=== PATIENT | male | born 1990 | race Two or more races ===

== ENCOUNTER 2020-02-27 11:39 | Emergency (ER) | payer OTHER ==
[~2020-02-27] VITALS: Ht 172.7 cm; Wt 103.7 kg
[2020-02-27] MEDS ORDERED: BUPIVAcaine/PF 2.5 mg/ml (0.25%) 30ml vial IJ ONE (12:10)
[2020-02-27] MEDS ORDERED: BUPIVAcaine/PF 2.5mg/ml (0.25%) 10ml vial IJ ONE (12:25)
--- NOTE | 2020-02-27 12:35 | NUR ---
Pt. reports having "one tall can of beer" today, was drinking beer while doing yard work when injury occurred
[2020-02-27] MEDS ORDERED: naproxen 500mg tablet PO ONE (13:10)
[2020-02-27 13:46] VITALS: BP 136/101
== END 2020-02-27 13:30 | disposition home or self-care (01) ==
LOC: ER 11:39
DX: S43.085A Other dislocation of left shoulder joint, initial encounter (principal); X50.1XXA Overexertion from prolonged static or awkward postures, initial encounter; Y93.89 Activity, other specified; Y92.89 Other specified places as the place of occurrence of the external cause; Y99.8 Other external cause status
CPT/HCPCS: 23650; 73020; 73030; 99284

== ENCOUNTER 2021-09-12 07:59 | Emergency (ER) | payer OTHER ==
[~2021-09-12] VITALS: Ht 172.7 cm; Wt 102.3 kg
[2021-09-12 08:08] VITALS: BP 127/86
[2021-09-12] MEDS ORDERED: CEPH500C2 PO (08:40)
[2021-09-12] MEDS ORDERED: IBUP-1986 PO (08:40)
[2021-09-12] MEDS ORDERED: LIDOcaine 1% 30ml preserv. free vial SQ STA (08:46)
== END 2021-09-12 09:22 | disposition home or self-care (01) ==
LOC: ER 08:00
DX: L02.212 Cutaneous abscess of back [any part, except buttock and flank] (principal); Z88.2 Allergy status to sulfonamides; Z79.899 Other long term (current) drug therapy
CPT/HCPCS: 10060; 99283

== ENCOUNTER 2022-07-16 08:26 | Emergency (ER) | payer OTHER ==
[~2022-07-16] VITALS: Ht 175.3 cm; Wt 111.4 kg
[~2022-07-16 08:26] MED LIST: IBUP-1986 PO
[2022-07-16 08:58] VITALS: BP 146/103
[2022-07-16] MEDS ORDERED: DOXYCYCLINE 100MG CAPSULE PO STA (11:33)
[2022-07-16] MEDS ORDERED: cephalexin 500mg capsule PO ONE (11:35)
[2022-07-16] MEDS ORDERED: LIDOcaine 1% W/epiNEPHrine 1:100,000 20ml vial SQ ONE (11:35)
[2022-07-16] MEDS ORDERED: LIDOcaine 1% w/EPI 1:100,000 30ml vial (MDV) SQ ONE (11:40)
[2022-07-16] MEDS ORDERED: CEPH500C2 PO (12:21)
[2022-07-16] MEDS ORDERED: DOXY100C77 PO (12:21)
== END 2022-07-16 12:43 | disposition home or self-care (01) ==
LOC: ER 08:26
DX: L02.31 Cutaneous abscess of buttock (principal); L03.317 Cellulitis of buttock; Z88.2 Allergy status to sulfonamides; Z79.2 Long term (current) use of antibiotics
CPT/HCPCS: 10060; 99283; A6258; A6449

== ENCOUNTER 2023-10-29 08:23 | Emergency (ER) | payer MEDICAID, OTHER ==
[~2023-10-29] VITALS: Ht 172.7 cm; Wt 114.5 kg
[2023-10-29 08:34] VITALS: BP 148/103; PULSE 86; TEMP 98.3; O2SAT 98
[2023-10-29 08:42] VITALS: RESP 18
[2023-10-29] MEDS ORDERED: LIDOCAINE 1%/EPI 1:100,000 inj. 10 ML multi-dose vial IJ ONE (09:45)
[2023-10-29] MEDS ORDERED: CEPH-585 PO (10:07)
[2023-10-29] MEDS ORDERED: DOXY-457 PO (10:07)
== END 2023-10-29 10:17 | disposition home or self-care (01) ==
LOC: ER 08:23
DX: L02.31 Cutaneous abscess of buttock (principal); Z88.2 Allergy status to sulfonamides; Z79.2 Long term (current) use of antibiotics; Z79.1 Long term (current) use of non-steroidal anti-inflammatories (NSAID)
CPT/HCPCS: 10060; 87070; 87077; 87186; 99283; A6449